=== PATIENT | female | born 1970 | race Native Hawaiian/Other Pacific Islander ===

== ENCOUNTER 2018-06-17 18:03 | Emergency (ER) | payer OTHER ==
[~2018-06-17] VITALS: Ht 170.2 cm; Wt 46.7 kg
[~2018-06-17 18:03] MED LIST: BUDE1AER3 INH; DEPAKOTE DR PO; DIVA125C PO; Depakote DR PO; FLUTMIS6 INH; HALO5TAB10 PO; LEXAPRO10 MG PO; NYST100016 TOP; OMEP20CA PO; REMERON SOLTAB15 MG PO; ZIPSOR25 MG PO
[2018-06-17 18:46] LABS: PLATELET COUNT 222 K/uL (152-353)
[2018-06-17 18:57] LABS: POTASSIUM 3.5 mmol/L (3.6-5.2)
[2018-06-17 19:44] VITALS: BP 126/76; TEMP 98.2
[2018-06-17] MEDS ORDERED: APAP PO (20:19)
[2018-06-17] MEDS ORDERED: CODEINE PO (20:19)
[2018-06-17] MEDS ORDERED: CODEINE/APAP1 TA2 PO (20:20)
[2018-06-17] MEDS ORDERED: AMANTADINE100 MG PO (20:23)
[2018-06-17] MEDS ORDERED: STOOL SOFTNR100 M1 PO (20:24)
[2018-06-17] MEDS ORDERED: MULTIVITAMI1 PO (20:25)
[2018-06-17] MEDS ORDERED: PROPRANOLOL10 MG PO (20:25)
[2018-06-17] MEDS ORDERED: VITAMIN E 400 UNIT PO (20:27)
== END 2018-06-17 19:44 | disposition other institution (70) ==
LOC: ED 18:03
PROVIDERS: Emergency Medicine
DX: F28 Other psychotic disorder not due to a substance or known physiological condition (principal); Z04.6 Encounter for general psychiatric examination, requested by authority
CPT/HCPCS: 36415; 80053; 81000; 85027; 99285